=== PATIENT | male | born 1980 ===

== ENCOUNTER 2017-04-25 13:49 | Emergency (ER) | payer SELFPAY ==
[2017-04-25] MEDS ORDERED: Sodium Chloride 0.9% 10 ML Syringe FLUSH PRN ×2 (13:54→13:57)
[2017-04-25] MEDS ORDERED: Sodium Chloride 0.9% 2.5 ML Syringe FLUSH PRN ×2 (13:54→13:57)
[2017-04-25] MEDS ORDERED: Lactated Ringers 1,000 ML IV ONE (13:57)
--- NOTE | 2017-04-25 13:57 | EDM.PDOC ---
ED HPI GENERAL MEDICAL PROBLEM - General Chief Complaint: Trauma Stated Complaint: AMB Time Seen by Provider: 04/25/17 13:51 - History of Present Illness INITIAL COMMENTS - FREE TEXT/NARRATIVE: HISTORY AND PHYSICAL: History of present illness: Patient's an unknown approximately 41-year-old white male who presents intubated after fall from approximately 15-20 feet with associated face and head trauma was reported per paramedics to be combative in field requiring rapid sequence intubation. Past medical surgical history and other information unavailable. Review of systems: Unknown Past medical history: Unknown Surgical history: Unknown Social history: Unknown Family history: Unknown Physical exam: HEENT: Patient has blood in nares bilaterally and oropharynx ET tube is in position color change was confirmed breath sounds are equal bilaterally trachea is midline c-collar is in place Lungs: Coarse bilaterally no crepitation or bruising noted Heart: S1S2, regular, Abdomen: Soft, nondistended, Pelvis: Stable nontender. Genitourinary: Grossly normal no blood at urethral meatus Rectal: No masses no gross blood and no high riding prostate Extremities: Atraumatic, Neuro: Patient was given vecuronium and ketamine prior to arrival Diagnostics: Cross table C-spine chest x-ray pelvis trauma labs EKG Therapeutics: Large-bore IV 2 surveillance monitor endotracheal tube and ventilatory management per anesthesia Impression: 1 trauma with altered mental status Definitive disposition and diagnosis as appropriate pending reevaluation and review of above. Review of Systems - Review of Systems Review Of Systems: ROS reveals no pertinent complaints other than HPI. ED EXAM, GENERAL - Physical Exam Exam: See Below (See dictation) Departure - Departure Time of Disposition: 13:57 Disposition: DC/Tfer to Acute Hospital 02 Condition: Good Clinical Impression: Trauma - Discharge Information
[2017-04-25] MEDS ORDERED: Diphtheria,Pertussis(Acell),Tetanus Vaccine 0.5 ML Syringe IM ONE (14:00)
--- NOTE | 2017-04-25 14:08 | CR ---
EXAMINATION: Pelvis HISTORY: Pain COMPARISON: None TECHNIQUE: AP view FINDINGS: There is no acute osseous abnormality, dislocation, or fracture. No mineralization appears normal. Hip and SI joint spaces are preserved. The iliopectineal lines are intact. Trauma board is no carroll. IMPRESSION: No acute osseous abnormality identified.
[2017-04-25] MEDS ORDERED: Diphtheria,Pertussis(Acell),Tetanus Vaccine 0.5 ML Syringe ONE (14:12)
[2017-04-25 14:24] LABS: CHLORIDE,CL 104 mmol/L (98-107); SODIUM,NA 138 mmol/L (136-148)
--- NOTE | 2017-04-25 14:24 | CR ---
EXAMINATION: Two-view chest (PA and Lateral views). HISTORY: Shortness of breath. FINDINGS: The trachea is midline. There is an endotracheal tube noted with tip 6 cm from the xu. The cardio mediastinal silhouette is within normal limits. No pulmonary infiltrates, effusions or pneumothorax. The left lung base is not well imaged. Trauma board is noted. Osseous structures appear unremarkable. Moderate amount of air projects under the left hemidiaphragm, likely from an inflated stomach. IMPRESSION: 1. Endotracheal tube noted with tip projecting approximately 6 cm from the xu. 2. Gaseous inflated stomach is noted.
--- NOTE | 2017-04-25 14:27 | CR ---
EXAMINATION: Cervical spine HISTORY: Pain COMPARISON: None TECHNIQUE: 2 views FINDINGS: There is no acute osseous abnormality, dislocation, or fracture. Cervical spinal alignment is normal. Vertebral body heights and disc spaces appear grossly maintained. C6 and C7 are not optima lly characterized. Endotracheal tube is noted. Prevertebral soft tissues appear normal. IMPRESSION: No acute osseous abnormality identified.
--- NOTE | 2017-04-25 14:29 | CR ---
EXAMINATION: Portable chest radiograph. HISTORY: Shortness of breath. FINDINGS: The trachea is midline. The cardiomediastinal silhouette is within normal limits. No pulmonary infilt rates, effusions or pneumothorax. Osseous structures appear unremarkable. Endogastric tube is noted curled in the esophagus with tip pr ojecting within the mid chest. IMPRESSION: Malpositioned endogastric tube with tip in the mid chest.
== END 2017-04-25 14:20 ==
LOC: EDBD 13:49 → MW.ED 13:49
DX: S09.90XA Unspecified injury of head, initial encounter (principal); S09.93XA Unspecified injury of face, initial encounter; R41.82 Altered mental status, unspecified; Z23 Encounter for immunization; W17.89XA Other fall from one level to another, initial encounter
CPT/HCPCS: 36415; 43753; 51702; 71045; 72040; 72170; 80053; 80305; 81001; 84484; 85025; 85610; 90471; 93005; 99291; G0390; G0480; J7120; 90715; 99284